=== PATIENT | female | born 1935 | race Caucasian/White ===

== ENCOUNTER 2016-07-25 11:18 | Emergency (ER) | payer MEDICARE, OTHER ==
[2016-07-25] MEDS ORDERED: NORMAL SALINE 1000 ML 1,000 ML IV ONE (11:35)
--- NOTE | 2016-07-25 11:36 | ER Document Report ---
ED Medical Screen (RME) - General Stated Complaint: NAUSEA Mode of Arrival: Wheelchair Information source: Patient Notes: Patient presents to the emergency department with weakness. Reports she's been nausea and diarrhea since . Unable to eat or drink due to nausea. Patient blood pressure 77/43 with a heart rate of 46, reports hx afib, stroke. DM2. I have greeted and performed a rapid initial assessment of this patient. A comprehensive ED assessment and evaluation of the patient, analysis of test results and completion of the medical decision making process will be conducted by additional ED providers. TRAVEL OUTSIDE OF THE [place] IN LAST 30 DAYS: No - Related Data Allergies/Adverse Reactions: Penicillins Allergy (Verified 07/25/16 11:31) HANDS RED AND SKIN PEELED Past Medical History - Past Medical History Cardiac Medical History: Reports: Hx Atrial Fibrillation, Hx Coronary Artery Disease, Hx Hypercholesterolemia, Hx Hypertension - LISINOPRIL, HCTZ Denies: Hx Heart Attack Pulmonary Medical History: Reports: Hx Bronchitis Denies: Hx Asthma, Hx COPD, Hx Pneumonia, Hx Tuberculosis Neurological Medical History: Denies: Hx Cerebrovascular Accident, Hx Seizures Endocrine Medical History: Reports: Hx Diabetes Mellitus Type 2 GI Medical History: Reports: Hx Hiatal Hernia - HAD SURGERY. Denies: Hx Ulcer Musculoskeltal Medical History: Denies Hx Arthritis Past Surgical History: Reports: Hx Abdominal Surgery, Hx Bowel Surgery, Hx Cardiac Catheterization, Hx Hysterectomy, Hx Tubal Ligation. Denies: Hx Mastectomy, Hx Open Heart Surgery - Immunizations Hx Diphtheria, Pertussis, Tetanus Vaccination: Yes Physical Exam - Vital signs Vitals: Temp Pulse Resp BP Pulse Ox 97.8 F 46 L 18 77/43 L 99 07/25/16 11:07/25/16 11:07/25/16 11:07/25/16 11:07/25/16 11:26 Course - Vital Signs Vital signs: Temp Pulse Resp BP Pulse Ox 97.8 F 46 L 18 77/43 L 99 07/25/16 11:07/25/16 11:26 07/25/16 11:07/25/16 11:07/25/16 11:26
[2016-07-25 12:57] LABS: ABSOLUTE LYMPHOCYTES (AUTO) 1.1 10^3/uL (0.5-4.7); ABSOLUTE MONOCYTES (AUTO) 0.4 10^3/uL (0.1-1.4); ABSOLUTE NEUT (AUTO) 2.8 10^3/uL (1.7-8.2); BASOPHILS % (AUTO) 1.1 % (0-2); EOSINOPHILS % (AUTO) 0.5 % (0-6); HEMATOCRIT 33.6 % (36.0-47.0); HEMOGLOBIN 11.2 g/dL (12.0-15.5); LYMPHOCYTES % (AUTO) 25.6 % (13-45); MEAN CORPUSCULAR HEMOGLOBIN 28.1 pg (27.0-33.4); MEAN CORPUSCULAR HGB CONC 33.4 g/dL (32.0-36.0); MEAN CORPUSCULAR VOLUME 84 fl (80-97); MONOCYTES % (AUTO) 9.4 % (3-13); RED BLOOD COUNT 3.99 10^6/uL (3.72-5.28); SEGMENTED NEUTROPHILS % (AUTO) 63.4 % (42-78); WHITE BLOOD COUNT 4.4 10^3/uL (4.0-10.5)
[2016-07-25] MEDS ORDERED: ONDANSETRON HCL INJ/PF 4 MG/2 ML SDV IV ONE (13:11)
[2016-07-25 13:15] LABS: BLOOD UREA NITROGEN 37 mg/dL (7-20); CALCIUM 9.1 mg/dL (8.4-10.2); CREATININE RESULT 1.25 mg/dL (0.52-1.25); GLUCOSE 182 mg/dL (75-110)
[2016-07-25 13:16] LABS: ALANINE AMINOTRANSFERASE 26 U/L (9-52); ALBUMIN 3.8 g/dL (3.5-5.0); ALKALINE PHOSPHATASE 100 U/L (38-126); ANION GAP 12 (5-19); ASPARTATE AMINO TRANSFERASE 30 U/L (14-36); BILIRUBIN,DIRECT 0.2 mg/dL (0.0-0.4); BILIRUBIN,TOTAL 0.7 mg/dL (0.2-1.3); CARBON DIOXIDE 25 mmol/L (22-30); CHLORIDE 97 mmol/L (98-107); LIPASE 106.6 U/L (23-300); MAGNESIUM 1.6 mg/dL (1.6-2.3); POTASSIUM 3.8 mmol/L (3.6-5.0); SODIUM 133.5 mmol/L (137-145); TOTAL PROTEIN 6.5 g/dL (6.3-8.2)
--- NOTE | 2016-07-25 13:21 | ER Document Report ---
ED General - General Chief Complaint: Nausea Stated Complaint: NAUSEA Mode of Arrival: Wheelchair TRAVEL OUTSIDE OF THE [place] IN LAST 30 DAYS: No - HPI Patient complains to provider of: nausea vomiting increased ostomy output lightheadedness Notes: Patient coming in for evaluation nausea vomiting increased ostomy output over the last 3 days. Ration also is complaining of some lightheadedness. Patient states symptoms worsen moving around. Patient states ostomy placed many years ago due to diverticular disease. Patient also has a history of fibrillation and is on sotalol. Patient states she did take her medications this morning. Otherwise patient denies any trauma denies any other critical etiology. Patient was found to be bradycardic and hypotensive upon her arrival here to the ER upon triaging placed the patient in room patient blood pressure did improve from systolic of 77 2 a systolic of 105. Patient's EKG was taken also shows a heart rate of 48 sinus bradycardia similar to previous EKGs. A quick review the patient's past medical history a showed a history of bradycardia in the past. - Related Data Allergies/Adverse Reactions: Penicillins Allergy (Verified 07/25/16 11:31) HANDS RED AND SKIN PEELED Past Medical History - General Information source: Patient - Social History Smoking Status: Never Smoker Chew tobacco use (# tins/day): No Family History: Reviewed & Not Pertinent Patient has suicidal ideation: No Patient has homicidal ideation: No - Past Medical History Cardiac Medical History: Reports: Hx Atrial Fibrillation, Hx Coronary Artery Disease, Hx Hypercholesterolemia, Hx Hypertension - LISINOPRIL, HCTZ Denies: Hx Heart Attack Pulmonary Medical History: Reports: Hx Bronchitis Denies: Hx Asthma, Hx COPD, Hx Pneumonia, Hx Tuberculosis Neurological Medical History: Denies: Hx Cerebrovascular Accident, Hx Seizures Endocrine Medical History: Reports: Hx Diabetes Mellitus Type 2 Renal/ Medical History: Denies: Hx Peritoneal Dialysis GI Medical History: Reports: Hx Hiatal Hernia - HAD SURGERY. Denies: Hx Ulcer Musculoskeltal Medical History: Denies Hx Arthritis Past Surgical History: Reports: Hx Abdominal Surgery, Hx Bowel Surgery, Hx Cardiac Catheterization, Hx Hysterectomy, Hx Tubal Ligation. Denies: Hx Mastectomy, Hx Open Heart Surgery - Immunizations Hx Diphtheria, Pertussis, Tetanus Vaccination: Yes Hx Pneumococcal Vaccination: 05/01/11 Review of Systems - Review of Systems Constitutional: No symptoms reported EENT: No symptoms reported Cardiovascular: No symptoms reported Respiratory: No symptoms reported Gastrointestinal: Nausea, Vomiting, Other - Ostomy output increased Genitourinary: No symptoms reported Female Genitourinary: No symptoms reported Musculoskeletal: No symptoms reported Skin: No symptoms reported Hematologic/Lymphatic: No symptoms reported Neurological/Psychological: No symptoms reported Physical Exam - Vital signs Vitals: Temp Pulse Resp BP Pulse Ox 97.8 F 46 L 18 77/43 L 99 07/25/16 11:07/25/16 11:07/25/16 11:07/25/16 11:07/25/16 11:26 Interpretation: Normal - General General appearance: Appears well, Alert - HEENT Head: Normocephalic, Atraumatic Eyes: Normal Pupils: PERRL - Respiratory Respiratory status: No respiratory distress Chest status: Nontender Breath sounds: Normal Chest palpation: Normal - Cardiovascular Rhythm: Bradycardia Heart sounds: Normal auscultation Murmur: No - Abdominal Inspection: Normal Distension: No distension Bowel sounds: Normal Tenderness: Nontender Organomegaly: No organomegaly - Back Back: Normal, Nontender - Extremities General upper extremity: Normal inspection, Nontender, Normal color, Normal ROM , Normal temperature General lower extremity: Normal inspection, Nontender, Normal color, Normal ROM , Normal temperature, Normal weight bearing. No: Carolee's sign - Neurological Neuro grossly intact: Yes Cognition: Normal Orientation: AAOx4 [place] Coma Scale Eye Opening: Spontaneous [place] Coma Scale Verbal: Oriented [place] Coma Scale Motor: Obeys Commands [place] Coma Scale Total: 15 Speech: Normal Motor strength normal: LUE, RUE, LLE, RLE Sensory: Normal - Psychological Associated symptoms: Normal affect, Normal mood - Skin Skin Temperature: Warm Skin Moisture: Dry Skin Color: Normal Course - Re-evaluation Re-evalutation: 07/25/16 13:21 Patient examination does shows bradycardia. Patient is able to move all 4 extremities. Ration's bradycardia more likely due to her sotalol she takes. Will starts fluid hydrating the patient with laboratory studies. 07/25/16 16:08 Agent feeling better after IV fluids. Did discuss with PCP will hold off on antibiotics for urinary results and stool results until cultures return. No signs of sepsis at this time. Patient agrees with plan to be discharged home encouraged patient to plan fluids. Patient will be given prescriptions a ran and Phenergan. Patient was grateful for her care. - Vital Signs Vital signs: Temp Pulse Resp BP Pulse Ox 97.8 F 47 L 14 146/64 H 99 07/25/16 11:26 07/25/16 14:55 07/25/16 14:01 07/25/16 14:55 07/25/16 11:26 - Laboratory Result Diagrams: 07/25/16 12:44 07/25/16 12:44 Laboratory results interpreted by me: 07/25/16 07/25/16 07/25/16 12:44 12:44 12:44 Hgb 11.2 L Hct 33.6 L PT 16.7 H Sodium 133.5 L Chloride 97 L BUN 37 H Est GFR ( Amer) 50 L Est GFR (Non-Af Amer) 41 L Glucose 182 H Urine Protein Urine Blood Ur Leukocyte Esterase 07/25/16 13:55 Hgb Hct PT Sodium Chloride BUN Est GFR ( Amer) Est GFR (Non-Af Amer) Glucose Urine Protein 30 H Urine Blood SMALL H Ur Leukocyte Esterase LARGE H Discharge - Discharge Clinical Impression: transient hypotension due to dehydration, Nausea vomiting and diarrhea Condition: Good Disposition: HOME, SELF-CARE Instructions: Gastroenteritis (adult) ([facility]), Dehydration ([facility]) Additional Instructions: Take medication as prescribed. Return to the ER symptoms worsen. Please follow -up with your physician in the next 2-3 days. Prescriptions: Ondansetron [Zofran Odt 4 mg Tablet] 1 - 2 tab PO Q4H PRN #20 tab.rapdis PRN Reason: For Nausea/Vomiting Promethazine HCl [Phenergan 25 mg Tablet] 1 - 2 tab PO Q6H PRN #15 tablet PRN Reason: Referrals: ZEV DAVIS MD [Primary Care Provider] - Follow up in 3-5 days
[2016-07-25 13:35] LABS: PROTHROMBIN TIME 16.7 SEC (11.4-15.4)
[2016-07-25 14:54] LABS: APPEARANCE,URINE SLIGHTLY-CLOUDY; BILIRUBIN,URINE NEGATIVE (NEGATIVE); GLUCOSE, URINE NEGATIVE (NEGATIVE); KETONES,URINE NEGATIVE (NEGATIVE); LEUKOCYTE ESTERASE,URINE LARGE (NEGATIVE); NITRITE,URINE NEGATIVE (NEGATIVE); PROTEIN,URINE 30 mg/dL (NEGATIVE); URINE SPECIFIC GRAVITY 1.012; UROBILINOGEN,URINE NEGATIVE mg/dL (<2.0)
[2016-07-25] MEDS ORDERED: NORMAL SALINE 1000 ML 500 ML IV ONE (15:37)
[2016-07-25 16:50] VITALS: BP 139/115
== END 2016-07-25 16:55 | disposition home or self-care (01) ==
LOC: ER 11:18
DX: E86.0 Dehydration (principal); I95.89 Other hypotension; R11.2 Nausea with vomiting, unspecified; R19.7 Diarrhea, unspecified; I48.91 Unspecified atrial fibrillation; I25.10 Atherosclerotic heart disease of native coronary artery without angina pectoris; E11.9 Type 2 diabetes mellitus without complications; I10 Essential (primary) hypertension; E78.00 Pure hypercholesterolemia, unspecified; Z90.710 Acquired absence of both cervix and uterus; Z88.0 Allergy status to penicillin; Z93.4 Other artificial openings of gastrointestinal tract status
CPT/HCPCS: 99283; 36415; 87040; 87045; 87205; 83690; 83735; 85025; 85610; 80053; 81001; 87493 ×2; 83605; J2405; J7030

== ENCOUNTER → 2016-11-30 | Outpatient (CLI) | payer MEDICARE, OTHER ==
[2016-11-30 09:22] LABS: ANION GAP 12 (5-19); BLOOD UREA NITROGEN 20 mg/dL (7-20); CALCIUM 9.4 mg/dL (8.4-10.2); CARBON DIOXIDE 27 mmol/L (22-30); CHLORIDE 101 mmol/L (98-107); CREATININE RESULT 0.97 mg/dL (0.52-1.25); GLUCOSE 149 mg/dL (75-110); POTASSIUM 3.7 mmol/L (3.6-5.0); SODIUM 139.8 mmol/L (137-145)
== END ==
LOC: OD 07:11
PROVIDERS: ATTEND Internal Medicine
DX: I10 Essential (primary) hypertension (principal); I25.10 Atherosclerotic heart disease of native coronary artery without angina pectoris; E11.9 Type 2 diabetes mellitus without complications
CPT/HCPCS: 36415; 80048

== ENCOUNTER → 2016-12-12 | Outpatient (CLI) | payer MEDICARE, OTHER ==
--- NOTE | 2016-12-12 08:09 | RADIOLOGY REPORT (SQ) ---
EXAM DESCRIPTION: CHEST PA/LATERAL COMPLETED DATE/TIME: 12/12/2016 7:48 am REASON FOR STUDY: SHORTNESS OF BREATH COMPARISON: CT chest 08/05/2013, 09/06/2012 Chest films 09/06/2012, 01/05/2016 EXAM PARAMETERS: NUMBER OF VIEWS: two views TECHNIQUE: Digital Frontal and Lateral radiographic views of the chest acquired. RADIATION DOSE: NA LIMITATIONS: none FINDINGS: LUNGS AND PLEURA: Lungs are hyperinflated but clear. No pleural effusion or pneumothorax. MEDIASTINUM AND HILAR STRUCTURES: Stable moderate size retrocardiac hiatal hernia HEART AND VASCULAR STRUCTURES: Stable mild cardiomegaly BONES: Osteoporotic, no acute findings HARDWARE: None in the chest. OTHER: No other significant finding. IMPRESSION: Obstructive lung disease, hiatal hernia, cardiomegaly. No acute changes TECHNICAL DOCUMENTATION: JOB ID: [id number] [employer]- All Rights Reserved
[2016-12-12 09:03] LABS: APPEARANCE,URINE SLIGHTLY-CLOUDY; BILIRUBIN,URINE NEGATIVE (NEGATIVE); GLUCOSE, URINE NEGATIVE (NEGATIVE); KETONES,URINE NEGATIVE (NEGATIVE); LEUKOCYTE ESTERASE,URINE LARGE (NEGATIVE); NITRITE,URINE NEGATIVE (NEGATIVE); PROTEIN,URINE 30 mg/dL (NEGATIVE); URINE SPECIFIC GRAVITY 1.016; UROBILINOGEN,URINE NEGATIVE mg/dL (<2.0)
[2016-12-12 09:34] LABS: ALANINE AMINOTRANSFERASE 31 U/L (9-52); ALBUMIN 3.8 g/dL (3.5-5.0); ALKALINE PHOSPHATASE 116 U/L (38-126); ANION GAP 12 (5-19); ASPARTATE AMINO TRANSFERASE 22 U/L (14-36); BILIRUBIN,DIRECT 0.4 mg/dL (0.0-0.4); BILIRUBIN,TOTAL 1.1 mg/dL (0.2-1.3); BLOOD UREA NITROGEN 20 mg/dL (7-20); CALCIUM 9.4 mg/dL (8.4-10.2); CARBON DIOXIDE 27 mmol/L (22-30); CHLORIDE 100 mmol/L (98-107); CREATININE RESULT 1.06 mg/dL (0.52-1.25); GLUCOSE 153 mg/dL (75-110); MAGNESIUM 1.5 mg/dL (1.6-2.3); POTASSIUM 3.8 mmol/L (3.6-5.0); SODIUM 138.9 mmol/L (137-145); TOTAL PROTEIN 6.7 g/dL (6.3-8.2)
== END ==
LOC: OD 07:18
PROVIDERS: ATTEND Internal Medicine
DX: N39.0 Urinary tract infection, site not specified (principal); R06.02 Shortness of breath; E11.9 Type 2 diabetes mellitus without complications; I10 Essential (primary) hypertension; E87.70 Fluid overload, unspecified
CPT/HCPCS: 36415; 71020; 80053; 81001; 83735; 87086

== ENCOUNTER → 2017-08-17 | Outpatient (CLI) | payer MEDICARE, OTHER ==
[2017-08-17 11:07] LABS: ANION GAP 10 (5-19); BLOOD UREA NITROGEN 24 mg/dL (7-20); CALCIUM 9.6 mg/dL (8.4-10.2); CARBON DIOXIDE 30 mmol/L (22-30); CHLORIDE 101 mmol/L (98-107); GLUCOSE 142 mg/dL (75-110); POTASSIUM 4.4 mmol/L (3.6-5.0); SODIUM 141.1 mmol/L (137-145)
== END ==
LOC: OD 09:34
PROVIDERS: ATTEND Internal Medicine
DX: E11.22 Type 2 diabetes mellitus with diabetic chronic kidney disease (principal); N18.9 Chronic kidney disease, unspecified
CPT/HCPCS: 36415; 80048; 83735

== ENCOUNTER → 2018-01-25 | Outpatient (CLI) | payer MEDICARE, OTHER ==
[2018-01-25 08:08] LABS: ABSOLUTE EOSINOPHILS # (AUTO) 0.1 10^3/uL (0.0-0.6); ABSOLUTE LYMPHOCYTES (AUTO) 1.3 10^3/uL (0.5-4.7); ABSOLUTE MONOCYTES (AUTO) 0.4 10^3/uL (0.1-1.4); ABSOLUTE NEUT (AUTO) 2.4 10^3/uL (1.7-8.2); BASOPHILS % (AUTO) 0.9 % (0-2); EOSINOPHILS % (AUTO) 1.5 % (0-6); HEMATOCRIT 33.1 % (36.0-47.0); HEMOGLOBIN 10.7 g/dL (12.0-15.5); LYMPHOCYTES % (AUTO) 31.2 % (13-45); MEAN CORPUSCULAR HEMOGLOBIN 26.2 pg (27.0-33.4); MEAN CORPUSCULAR HGB CONC 32.4 g/dL (32.0-36.0); MEAN CORPUSCULAR VOLUME 81 fl (80-97); MONOCYTES % (AUTO) 8.9 % (3-13); PLATELET COUNT 211 10^3/uL (150-450); RED CELL DISTRIBUTION WIDTH 14.9 % (11.5-14.0); SEGMENTED NEUTROPHILS % (AUTO) 57.5 % (42-78); TOTAL CELLS COUNTED % (AUTO) 100 %; WHITE BLOOD COUNT 4.1 10^3/uL (4.0-10.5)
[2018-01-25 08:32] LABS: ALANINE AMINOTRANSFERASE 35 U/L (9-52); ANION GAP 10 (5-19); BLOOD UREA NITROGEN 19 mg/dL (7-20); CALCIUM 9.4 mg/dL (8.4-10.2); CARBON DIOXIDE 29 mmol/L (22-30); CHLORIDE 101 mmol/L (98-107); CHOLESTEROL 136.46 mg/dL (0-200); GLUCOSE 163 mg/dL (75-110); SODIUM 140.4 mmol/L (137-145); TRIGLYCERIDES 134 mg/dL (<150)
[2018-01-25 08:46] LABS: DIRECT LDL 34 mg/dL (<100)
== END ==
LOC: OD 07:23
PROVIDERS: ATTEND Family Medicine Geriatric Medicine
DX: E11.9 Type 2 diabetes mellitus without complications (principal); I10 Essential (primary) hypertension; E78.5 Hyperlipidemia, unspecified; Z79.899 Other long term (current) drug therapy
CPT/HCPCS: 36415; 80048; 80061; 83036; 83735; 84443; 84460; 85025

== ENCOUNTER → 2018-03-05 | Outpatient (CLI) | payer MEDICARE, OTHER ==
[2018-03-05 11:07] LABS: ABSOLUTE LYMPHOCYTES (AUTO) 0.9 10^3/uL (0.5-4.7); ABSOLUTE MONOCYTES (AUTO) 0.3 10^3/uL (0.1-1.4); ABSOLUTE NEUT (AUTO) 2.8 10^3/uL (1.7-8.2); BASOPHILS % (AUTO) 0.8 % (0-2); HEMATOCRIT 32.9 % (36.0-47.0); HEMOGLOBIN 10.3 g/dL (12.0-15.5); LYMPHOCYTES % (AUTO) 22.2 % (13-45); MEAN CORPUSCULAR HEMOGLOBIN 24.4 pg (27.0-33.4); MEAN CORPUSCULAR HGB CONC 31.5 g/dL (32.0-36.0); MEAN CORPUSCULAR VOLUME 77 fl (80-97); PLATELET COUNT 206 10^3/uL (150-450); RED BLOOD COUNT 4.25 10^6/uL (3.72-5.28); TOTAL CELLS COUNTED % (AUTO) 100 %; WHITE BLOOD COUNT 4.2 10^3/uL (4.0-10.5)
[2018-03-05 11:30] LABS: ANION GAP 13 (5-19); BLOOD UREA NITROGEN 25 mg/dL (7-20); CALCIUM 9.6 mg/dL (8.4-10.2); CARBON DIOXIDE 27 mmol/L (22-30); CHLORIDE 102 mmol/L (98-107); GLUCOSE 142 mg/dL (75-110); POTASSIUM 3.8 mmol/L (3.6-5.0); SODIUM 141.9 mmol/L (137-145)
== END ==
LOC: OD 10:29
PROVIDERS: ATTEND Internal Medicine
DX: I12.9 Hypertensive chronic kidney disease with stage 1 through stage 4 chronic kidney disease, or unspecified chronic kidney disease (principal); E11.22 Type 2 diabetes mellitus with diabetic chronic kidney disease; N18.9 Chronic kidney disease, unspecified
CPT/HCPCS: 36415; 80048; 85025

== ENCOUNTER → 2018-03-07 | Outpatient (CLI) | payer MEDICARE, OTHER ==
[2018-03-07 10:27] LABS: ABSOLUTE RETICS # 0.068 10^6/uL (0.028-0.122); RETICULOCYTE COUNT (AUTO) 1.77 % (0.66-2.85)
[2018-03-07 10:46] LABS: IRON(TIBC) 20.9 ug/dL (37-170)
== END ==
LOC: OD 09:38
PROVIDERS: ATTEND Internal Medicine
DX: D64.9 Anemia, unspecified (principal); E53.8 Deficiency of other specified B group vitamins
CPT/HCPCS: 36415; 82607; 82728; 82746; 83540; 83550; 85045

== ENCOUNTER 2018-05-27 09:00 | Emergency (ER) | payer MEDICARE, OTHER ==
--- NOTE | 2018-05-27 11:17 | RADIOLOGY REPORT (SQ) ---
EXAM DESCRIPTION: KNEE LEFT 3 VIEWS COMPLETED DATE/TIME: 05/27/2018 11:05 am REASON FOR STUDY: fall pain 2 last night, twisted knee, pain COMPARISON: None. NUMBER OF VIEWS: Three views. TECHNIQUE: AP, lateral, and sunrise patella radiographic images acquired of the left knee. LIMITATIONS: None. FINDINGS: MINERALIZATION: Osteopenic BONES: No acute fracture or dislocation. No worrisome bone lesions, benign appearing nonossifying fi broma 2.5 cm in size along the lateral femoral condyle nonweightbearing surface. JOINT: No effusion. SOFT TISSUES: No soft tissue swelling. No radio-opaque foreign body. Diffuse popliteal artery calci fications OTHER: No other significant finding. IMPRESSION: No acute changes TECHNICAL DOCUMENTATION: JOB ID: [id number] [employer]- All Rights Reserved Reading location - IP/workstation name: [email or web address]
--- NOTE | 2018-05-27 11:18 | RADIOLOGY REPORT (SQ) ---
EXAM DESCRIPTION: HIP LEFT AP/LATERAL COMPLETED DATE/TIME: 05/27/2018 11:05 am REASON FOR STUDY: hip pain COMPARISON: None. NUMBER OF VIEWS: Two views. TECHNIQUE: AP pelvis and additional frog-leg view of the left hip. LIMITATIONS: None. FINDINGS: MINERALIZATION: Normal. LEFT HIP: No fracture or dislocation. No worrisome bone lesions. RIGHT HIP: No fracture or dislocation. No worrisome bone lesions. PUBIS AND ISCHIUM: No fracture. PELVIS: No fracture. SACRUM: Not well seen due to superimposed bowel gas LOWER LUMBAR SPINE: No fracture or dislocation. No worrisome bone lesions. No significant disc disea se. SOFT TISSUES: Left lower quadrant ostomy. Arterial vascular calcifications. OTHER: No other significant finding. IMPRESSION: No acute fracture or malalignment left hip TECHNICAL DOCUMENTATION: JOB ID: [id number] [employer]- All Rights Reserved Reading location - IP/workstation name: [email or web address]
[2018-05-27] MEDS ORDERED: LIDOCAINE 5% (700 MG) TRANSDERMAL ADH..PATCH TP ONE (12:11)
[2018-05-27] MEDS ORDERED: TRAMADOL HCL 50 MG TABLET PO ONE (12:11)
--- NOTE | 2018-05-27 12:17 | ER Document Report ---
ED General - General Chief Complaint: Fall Injury Stated Complaint: FALL/KNEE PAIN Time Seen by Provider: 05/27/18 09:42 Primary Care Provider: ZEV DAVIS MD [Primary Care Provider] - Follow up in 3-5 days TRAVEL OUTSIDE OF THE [place] IN LAST 30 DAYS: No - HPI Patient complains to provider of: Left knee pain Notes: Patient coming in for evaluation of left knee pain. Patient states that last night she was able around lost her balance and fell patient states pain to the medial side of the left knee ever since that time. Patient states she does have a walker at home however normally does not use it. Patient denies any loss consciousness. Patient otherwise resting comfortably denies fevers chills nausea vomiting diarrhea states difficulty ambulating because of pain in the left knee - Related Data Allergies/Adverse Reactions: Penicillins Allergy (Verified 05/27/18 09:01) HANDS RED AND SKIN PEELED Past Medical History - Social History Smoking Status: Never Smoker Chew tobacco use (# tins/day): No Frequency of alcohol use: None Drug Abuse: None Family History: Reviewed & Not Pertinent Patient has suicidal ideation: No Patient has homicidal ideation: No - Past Medical History Cardiac Medical History: Reports: Hx Atrial Fibrillation, Hx Coronary Artery Disease, Hx Hypercholesterolemia, Hx Hypertension - LISINOPRIL, HCTZ Denies: Hx Heart Attack Pulmonary Medical History: Reports: Hx Bronchitis Denies: Hx Asthma, Hx COPD, Hx Pneumonia, Hx Tuberculosis Neurological Medical History: Denies: Hx Cerebrovascular Accident, Hx Seizures Endocrine Medical History: Reports: Hx Diabetes Mellitus Type 2 Renal/ Medical History: Denies: Hx Peritoneal Dialysis GI Medical History: Reports: Hx Hiatal Hernia - HAD SURGERY. Denies: Hx Ulcer Musculoskeletal Medical History: Denies Hx Arthritis Past Surgical History: Reports: Hx Abdominal Surgery, Hx Bowel Surgery, Hx Cardiac Catheterization, Hx Hysterectomy, Hx Tubal Ligation. Denies: Hx Mastectomy, Hx Open Heart Surgery - Immunizations Hx Diphtheria, Pertussis, Tetanus Vaccination: Yes Hx Pneumococcal Vaccination: 05/01/11 Review of Systems - Review of Systems Constitutional: No symptoms reported EENT: No symptoms reported Cardiovascular: No symptoms reported Respiratory: No symptoms reported Gastrointestinal: No symptoms reported Genitourinary: No symptoms reported Female Genitourinary: No symptoms reported Musculoskeletal: Other - Left knee pain Skin: No symptoms reported Hematologic/Lymphatic: No symptoms reported Neurological/Psychological: No symptoms reported -: Yes All other systems reviewed and negative Physical Exam - Vital signs Vitals: Temp Pulse Resp BP Pulse Ox 97.5 F 92 16 145/82 H 97 05/27/18 09:06 05/27/18 09:06 05/27/18 09:06 05/27/18 09:06 05/27/18 09:06 Interpretation: Normal - General General appearance: Appears well, Alert - HEENT Head: Normocephalic, Atraumatic Eyes: Normal Pupils: PERRL - Respiratory Respiratory status: No respiratory distress Chest status: Nontender Breath sounds: Normal Chest palpation: Normal - Cardiovascular Rhythm: Regular Heart sounds: Normal auscultation Murmur: No - Abdominal Inspection: Normal Distension: No distension Bowel sounds: Normal Tenderness: Nontender Organomegaly: No organomegaly - Back Back: Normal, Nontender - Extremities General upper extremity: Normal inspection, Nontender, Normal color, Normal ROM, Normal temperature General lower extremity: Normal inspection, Tender - Right knee unaffected patient examination of the left knee shows small bruise in the medial patella plateau region patient does have pain on valgus stressing and anterior drawer testing there is no instability no deformity, Normal color, Normal ROM, Normal temperature, Normal weight bearing. No: Carolee's sign - Neurological Neuro grossly intact: Yes Cognition: Normal Orientation: AAOx4 [place] Coma Scale Eye Opening: Spontaneous [place] Coma Scale Verbal: Oriented [place] Coma Scale Motor: Obeys Commands [place] Coma Scale Total: 15 Speech: Normal Motor strength normal: LUE, RUE, LLE, RLE Sensory: Normal - Psychological Associated symptoms: Normal affect, Normal mood - Skin Skin Temperature: Warm Skin Moisture: Dry Skin Color: Normal Course - Re-evaluation Re-evalutation: 05/27/18 14:38 Knee x-rays and hip x-rays performed showing no signs of fracture recommend Nav bandage with treatment of her pain with Tylenol lidocaine patches and tramadol for severe pain. Patient was given warnings about narcotic side effects and increasing risk of fall patient does have a walker at home is to use this for the next few days return for repeat x-rays in 7 days if pain worsens or fails to improve patient states understanding discharged home. - Vital Signs Vital signs: Temp Pulse Resp BP Pulse Ox 97.7 F 60 18 139/59 H 95 05/27/18 13:32 05/27/18 13:32 05/27/18 13:32 05/27/18 13:32 05/27/18 13:32 Discharge - Discharge Clinical Impression: Left knee pain Qualifiers: Chronicity: acute Qualified Code(s): M25.562 - Pain in left knee Condition: Good Disposition: HOME, SELF-CARE Instructions: Oral Narcotic Medication ([facility]), Sprained Knee ([facility]) Additional Instructions: Your x-rays today show no signs of acute fracture. I would highly recommend she follow-up with your primary care physician in the next 5-7 days if you continue to have no improvement of your pain. We recommend using the Nav wrap as given to you here in ER to help support her knee please use your walker at home when ambulating for the next 5-7 days. I would recommend using [id number] lidocaine patches Tylenol for pain control for severe pain I will give you a prescription for tramadol. Please be aware that this is a narcotic and can increase your risk of falling. I would recommend only taking this when you are about to go to sleep. Return to ER if symptoms worsen Prescriptions: Tramadol HCl [Ultram 50 mg Tablet] 50 mg PO ASDIR PRN #14 tablet PRN Reason: Referrals: ZEV DAVIS MD [Primary Care Provider] - Follow up in 3-5 days
[2018-05-27 13:33] VITALS: BP 139/59
== END 2018-05-27 14:16 | disposition home or self-care (01) ==
LOC: ER 09:00
DX: M25.562 Pain in left knee (principal); I48.91 Unspecified atrial fibrillation; I25.10 Atherosclerotic heart disease of native coronary artery without angina pectoris; E78.00 Pure hypercholesterolemia, unspecified; I10 Essential (primary) hypertension; E11.9 Type 2 diabetes mellitus without complications; Z88.0 Allergy status to penicillin; Z90.710 Acquired absence of both cervix and uterus
CPT/HCPCS: 99283; 73502; 73562; L1830; A9270

== ENCOUNTER → 2018-06-13 | Day surgery (SDC) | payer MEDICARE, OTHER ==
--- NOTE | 2018-06-13 14:57 | RADIOLOGY REPORT (SQ) ---
EXAM DESCRIPTION: CT LEFT LOWER EXTREMITY WITH COMPLETED DATE/TIME: 06/13/2018 2:28 pm REASON FOR STUDY: CONTUSION OF LEFT KNEE, INITIAL ENCOUNTER S80.02XA CONTUSION OF LEFT KNEE, INITIA L ENCOUNTER COMPARISON: None. TECHNIQUE: Post arthrographic imaging performed through the left knee with reformatted coronal and s agittal imaging windowed for bone and soft tissues. All CT scanners at this facility use dose modulation, iterative reconstruction, and/or weight based d osing when appropriate to reduce radiation dose to as low as reasonably achievable (ALARA). [facility]: Dose Right [facility]: CareDose [facility]: Dose Right [facility]: Teradose 4D [facility]: DDStocks RADIATION DOSE: CT Rad equipment meets quality standard of care and radiation dose reduction techniq ues were employed. CTDIvol: 4.6 mGy. DLP: 109 mGy-cm. mGy. LIMITATIONS: None. FINDINGS: SOFT TISSUES: No regional soft tissue masses or radiopaque foreign body noted. Popliteal artery calcifications. BONES: Normal bone density for age. No fracture. A 1.3 cm subcortical cyst is present in the nonweightbearing surface lateral femoral condyles at the attachment of the popliteus tendon. This is best shown on coronal image 28 and axial image 41. Popl iteus tendon and tendon sheath grossly intact. JOINT DISTENTION: Adequate distention with contrast. No intra-articular loose bodies. CHONDRAL SURFACES: Minimal chondromalacia in the medial patellar facet. MENISCI: Medial and lateral menisci are intact OTHER: Anterior posterior cruciate ligaments intact. Mild thickening at the proximal attachment medi al collateral ligament. Lateral collateral ligament unremarkable IMPRESSION: No CT arthrogram evidence of meniscal tear or cruciate ligament injury TECHNICAL DOCUMENTATION: JOB ID: [id number] Quality ID # [id number]: Final reports with documentation of one or more dose reduction techniques (e.g., Au tomated exposure control, adjustment of the mA and/or kV according to patient size, use of iterative reconstruction technique) 2010 [employer]- All Rights Reserved Reading location - IP/workstation name: [email or web address]
--- NOTE | 2018-06-13 15:03 | RADIOLOGY REPORT (SQ) ---
EXAM DESCRIPTION: FLUORO/NEEDLE PLACEMENT COMPLETED DATE/TIME: 06/13/2018 2:27 pm REASON FOR STUDY: CONTUSION OF LEFT KNEE, INITIAL ENCOUNTER S80.02XA CONTUSION OF LEFT KNEE, INITIA L ENCOUNTER COMPARISON: None. FLUOROSCOPY TIME: 20 seconds 4 digital fluoroscopic images saved to PACS. LIMITATIONS: None. PROCEDURE: Procedure, risks, benefits and alternatives explained to patient who then gave written co nsent. The left knee was marked and a time-out was called for correct marking verification. Entry s ite marked using fluoroscopic guidance. Knee prepped and draped using sterile technique. Local anes thesia achieved using 3 mL of 1% lidocaine injection. 22 gauge spinal needle introduced into the kathie nt space under direct fluoroscopic visualization. Non-ionic contrast instilled to confirm intra-jennifer cular position. Additional dilute non-ionic contrast instilled. Needle removed and entry site cover ed with sterile bandage. No immediate complications noted. TECHNIQUE: Digital images acquired during fluoroscopy and stored on PACS. Patient immediately take n to the CT suite for additional imaging. INJECTION LOCATION: Left knee CONTRAST TYPE AND AMOUNT: 2 mL of Omnipaque 300 was injected into the left knee joint followed by 20 mL of dilute Omnipaque/ saline mixture for CT arthrogram IMPRESSION: SUCCESSFUL NEEDLE PLACEMENT AND INJECTION FOR LEFT KNEE CT ARTHROGRAM. COMMENT: Quality ID [id number]: Final reports for procedures using fluoroscopy that document radiation exp osure indices, or exposure time and number of fluorographic images (if radiation exposure indices are not available) TECHNICAL DOCUMENTATION: JOB ID: [id number] [email or web address]- All Rights Reserved Reading location - IP/workstation name: [email or web address]
== END ==
LOC: RAD 13:22
PROVIDERS: ATTEND Orthopaedic Surgery
DX: S80.02XA Contusion of left knee, initial encounter (principal); X58.XXXA Exposure to other specified factors, initial encounter
CPT/HCPCS: 27369; 77002

== ENCOUNTER → 2019-02-21 | Outpatient (CLI) | payer MEDICARE, OTHER ==
[2019-02-21 09:49] LABS: ABSOLUTE EOSINOPHILS # (AUTO) 0.1 10^3/uL (0.0-0.6); ABSOLUTE LYMPHOCYTES (AUTO) 1.4 10^3/uL (0.5-4.7); ABSOLUTE MONOCYTES (AUTO) 0.4 10^3/uL (0.1-1.4); BASOPHILS % (AUTO) 0.6 % (0-2); EOSINOPHILS % (AUTO) 1.8 % (0-6); HEMATOCRIT 38.9 % (36.0-47.0); HEMOGLOBIN 13.4 g/dL (12.0-15.5); LYMPHOCYTES % (AUTO) 28.2 % (13-45); MEAN CORPUSCULAR HEMOGLOBIN 32.7 pg (27.0-33.4); MEAN CORPUSCULAR HGB CONC 34.5 g/dL (32.0-36.0); MEAN CORPUSCULAR VOLUME 95 fl (80-97); MONOCYTES % (AUTO) 7.9 % (3-13); PLATELET COUNT 166 10^3/uL (150-450); RED CELL DISTRIBUTION WIDTH 11.7 % (11.5-14.0); SEGMENTED NEUTROPHILS % (AUTO) 61.5 % (42-78); TOTAL CELLS COUNTED % (AUTO) 100 %; WHITE BLOOD COUNT 4.8 10^3/uL (4.0-10.5)
[2019-02-21 10:25] LABS: ALKALINE PHOSPHATASE 177 U/L (38-126); ANION GAP 12 (5-19); ASPARTATE AMINO TRANSFERASE 25 U/L (14-36); BILIRUBIN,DIRECT 0.3 mg/dL (0.0-0.4); BILIRUBIN,TOTAL 1.5 mg/dL (0.2-1.3); BLOOD UREA NITROGEN 21 mg/dL (7-20); CALCIUM 9.2 mg/dL (8.4-10.2); CARBON DIOXIDE 29 mmol/L (22-30); CHLORIDE 101 mmol/L (98-107); CHOLESTEROL 147.96 mg/dL (0-200); GLUCOSE 162 mg/dL (75-110); POTASSIUM 3.5 mmol/L (3.6-5.0); TRIGLYCERIDES 143 mg/dL (<150)
[2019-02-21 10:36] LABS: DIRECT LDL 56 mg/dL (<100)
== END ==
LOC: OD 08:31
PROVIDERS: ATTEND Internal Medicine
DX: I12.9 Hypertensive chronic kidney disease with stage 1 through stage 4 chronic kidney disease, or unspecified chronic kidney disease (principal); N18.3 Chronic kidney disease, stage 3 (moderate); E11.22 Type 2 diabetes mellitus with diabetic chronic kidney disease; I25.10 Atherosclerotic heart disease of native coronary artery without angina pectoris; I48.0 Paroxysmal atrial fibrillation; E03.9 Hypothyroidism, unspecified
CPT/HCPCS: 36415; 80053; 80061; 83036; 84443; 85025

== ENCOUNTER 2019-04-16 07:44 | Emergency (ER) | payer MEDICARE, OTHER ==
[2019-04-16] MEDS ORDERED: ONDANSETRON HCL INJ/PF 4 MG/2 ML SDV IV ONE (10:39)
--- NOTE | 2019-04-16 10:39 | ER Document Report ---
ED GI/ - General Chief Complaint: Abdominal Pain Stated Complaint: BACK/FLANK PAIN Time Seen by Provider: 04/16/19 10:06 Primary Care Provider: ZEV DAVIS MD [Primary Care Provider] - Follow up as needed Notes: Ms. Mendieta is an 84-year-old female with past medical history of A. 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 Patient states this began 2 days ago. She states that the pain is there at all times however it does worsen with movements. She states that she has had decreasing output via colostomy over the weekend. Patient denies any fever or chills, cough or chest pain. She denies any shortness of breath. She states she is urinating frequently however she is on quite a bit of Lasix and denies any dysuria. She endorses nausea without any episodes of vomiting however no nausea at this point in time. Patient states that she has only changed her colostomy bag once and it was only a small amount this morning at 6 AM. No known ill contacts. TRAVEL OUTSIDE OF THE [place] IN LAST 30 DAYS: No - Related Data Allergies/Adverse Reactions: Penicillins Allergy (Verified 04/16/19 08:20) HANDS RED AND SKIN PEELED Past Medical History - Social History Smoking Status: Never Smoker Chew tobacco use (# tins/day): No Frequency of alcohol use: None Drug Abuse: None Family History: Reviewed & Not Pertinent Patient has suicidal ideation: No Patient has homicidal ideation: No - Past Medical History Cardiac Medical History: Reports: Hx Atrial Fibrillation, Hx Coronary Artery Disease, Hx Hypercholesterolemia, Hx Hypertension - LISINOPRIL, HCTZ Denies: Hx Heart Attack Pulmonary Medical History: Reports: Hx Bronchitis Denies: Hx Asthma, Hx COPD, Hx Pneumonia, Hx Tuberculosis Neurological Medical History: Denies: Hx Cerebrovascular Accident, Hx Seizures Endocrine Medical History: Reports: Hx Diabetes Mellitus Type 2 Renal/ Medical History: Denies: Hx Peritoneal Dialysis GI Medical History: Reports: Hx Hiatal Hernia - HAD SURGERY. Denies: Hx Ulcer Musculoskeletal Medical History: Denies Hx Arthritis Past Surgical History: Reports: Hx Abdominal Surgery, Hx Bowel Surgery, Hx Cardiac Catheterization, Hx Cardiac Surgery - pacemaker, Hx Hysterectomy, Hx Tubal Ligation. Denies: Hx Mastectomy, Hx Open Heart Surgery - Immunizations Hx Diphtheria, Pertussis, Tetanus Vaccination: Yes Hx Pneumococcal Vaccination: 05/01/11 Review of Systems - Review of Systems Constitutional: See HPI EENT: No symptoms reported Cardiovascular: No symptoms reported Respiratory: No symptoms reported Gastrointestinal: See HPI Genitourinary: No symptoms reported Female Genitourinary: No symptoms reported Musculoskeletal: No symptoms reported Skin: No symptoms reported Hematologic/Lymphatic: No symptoms reported Neurological/Psychological: No symptoms reported Physical Exam - Vital signs Vitals: Temp Pulse Resp BP Pulse Ox 97.4 F 72 18 138/89 H 100 04/16/19 07:49 04/16/19 07:49 04/16/19 07:49 04/16/19 07:49 04/16/19 07:49 Interpretation: Normal - General General appearance: Appears well, Alert - HEENT Head: Normocephalic, Atraumatic Eyes: Normal Pupils: PERRL - Respiratory Respiratory status: No respiratory distress Chest status: Nontender Breath sounds: Normal Chest palpation: Normal - Cardiovascular Rhythm: Regular Heart sounds: Normal auscultation Murmur: No - Abdominal Inspection: Normal Distension: No distension Bowel sounds: Normal Tenderness: Nontender Organomegaly: No organomegaly - Back Back: Normal, CVA tenderness - L CVA TTP. No: Deformity/step-off - Extremities General upper extremity: Normal inspection, Nontender, Normal color, Normal ROM, Normal temperature General lower extremity: Normal inspection, Nontender, Normal color, Normal ROM, Normal temperature, Normal weight bearing. No: Carolee's sign - Neurological Neuro grossly intact: Yes Cognition: Normal Orientation: AAOx4 Jaime Coma Scale Eye Opening: Spontaneous [place] Coma Scale Verbal: Oriented Jaime Coma Scale Motor: Obeys Commands [place] Coma Scale Total: 15 Speech: Normal Motor strength normal: LUE, RUE, LLE, RLE Sensory: Normal - Psychological Associated symptoms: Normal affect, Normal mood - Skin Skin Temperature: Warm Skin Moisture: Dry Skin Color: Normal Course - Re-evaluation Re-evalutation: Patient is generally well-appearing nontoxic. Initial vitals within normal limits. Differential diagnosis includes UTI, pyelonephritis, SBO (less likely), diverticulitis 04/16/19 13:38 BC does not show significant leukocytosis or left shift. CMP notable for increased BUN to creatinine ratio consistent with dehydration. However creatinine is stable at 1.11. Total bili slightly elevated at 1.7. UA shows large amount of blood with large leukocyte esterase however only 4 WBCs. There is only 2 squamous epithelial cells. Given the patient's CVA tenderness with indirect percussion, this is likely pyelonephritis. CT of the abdomen pelvis does show a large hiatal hernia which is stable in appearance. Also shows an ostomy site in the left lower quadrant with an associated containing omental fat and small bowel. There is no obstruction. There is an umbilical hernia containing small bowel without incarceration or mechanical obstruction and small amount of scattered colonic diverticuli. She will be ordered for ceftriaxone as well as p.o. Bactrim for her pyelonephritis. Patient will also be ordered for a small bolus of IV fluids of approximately 500 mL, given her history of CHF. 04/16/19 15:41 Patient completed her ceftriaxone and took the p.o. Bactrim without any difficulties. Will observe for 30 minutes given her history of allergy to penicillins. Patient will be discharged with p.o. Keflex and p.o. Bactrim. Patient instructed to use yogurt with probiotics in it to prevent diarrhea commonly associated with antibiotic use. Patient given return precautions and instructed to follow-up with her primary care doctor for reevaluation. - Vital Signs Vital signs: Temp Pulse Resp BP Pulse Ox 98.2 F 72 18 159/85 H 95 04/16/19 12:39 04/16/19 12:39 04/16/19 12:39 04/16/19 12:39 04/16/19 12:39 - Laboratory Result Diagrams: 04/16/19 11:12 04/16/19 11:12 Laboratory results interpreted by me: 04/16/19 04/16/19 10:58 11:12 Chloride 97 L BUN 23 H Est GFR ( Amer) 57 L Est GFR (MDRD) Non-Af 47 L Glucose 126 H Total Bilirubin 1.7 H Alkaline Phosphatase 181 H Total Protein 8.4 H Urine Blood LARGE H Ur Leukocyte Esterase LARGE H Urine Ascorbic Acid 40 H Discharge - Discharge Clinical Impression: Pyelonephritis, Left flank pain Condition: Good Disposition: HOME, SELF-CARE Instructions: Pyelonephritis ([facility]), Antibiotic Therapy ([facility]), Trimethoprim- Sulfa ([facility]), Cephalexin ([facility]) Additional Instructions: It is important that you finish the full course of antibiotics as prescribed. You have been treated here in emergency department with your first doses. You do not need to initiate them until tomorrow morning. You will take the Keflex (cephalexin) 3 times a day for the next 14 days. You also take the Bactrim (trimethoprim/sulfamethoxazole) for the next 14 days as well. It is important that you finish the full course of antibiotics. I would recommend that you eat yogurt with probiotics in it such as activity you to help prevent diarrhea co mmonly associated with antibiotic use. Follow-up with your primary care doctor. Make sure you stay well-hydrated. Return to the ED if you develop lightheadedness, fever, worsening pain, unable to keep down food or drink, or any other concerning symptoms. Prescriptions: Sulfamethoxazole/Trimethoprim [Bactrim Ds Tablet] 2 tab PO BID 14 Days #28 tablet Cephalexin Monohydrate [Keflex 500 mg Capsule] 500 mg PO TID 14 Days #42 capsule Referrals: ZEV DAVIS MD [Primary Care Provider] - Follow up as needed
[2019-04-16] MEDS ORDERED: MORPHINE SULFATE 10 MG/ML INJ IV ONE (10:40)
[2019-04-16 11:21] LABS: APPEARANCE,URINE SLIGHTLY-CLOUDY; BILIRUBIN,URINE NEGATIVE (NEGATIVE); COLOR,URINE YELLOW; GLUCOSE, URINE NEGATIVE (NEGATIVE); KETONES,URINE NEGATIVE (NEGATIVE); LEUKOCYTE ESTERASE,URINE LARGE (NEGATIVE); NITRITE,URINE NEGATIVE (NEGATIVE); PROTEIN,URINE NEGATIVE (NEGATIVE); UROBILINOGEN,URINE NEGATIVE mg/dL (<2.0)
[2019-04-16 11:35] LABS: ABSOLUTE LYMPHOCYTES (AUTO) 1.5 10^3/uL (0.5-4.7); ABSOLUTE MONOCYTES (AUTO) 0.4 10^3/uL (0.1-1.4); ABSOLUTE NEUT (AUTO) 4.3 10^3/uL (1.7-8.2); BASOPHILS % (AUTO) 0.7 % (0-2); EOSINOPHILS % (AUTO) 0.5 % (0-6); HEMATOCRIT 40.8 % (36.0-47.0); HEMOGLOBIN 14.1 g/dL (12.0-15.5); LYMPHOCYTES % (AUTO) 23.2 % (13-45); MEAN CORPUSCULAR HEMOGLOBIN 32.9 pg (27.0-33.4); MEAN CORPUSCULAR HGB CONC 34.5 g/dL (32.0-36.0); MEAN CORPUSCULAR VOLUME 95 fl (80-97); MONOCYTES % (AUTO) 6.7 % (3-13); PLATELET COUNT 182 10^3/uL (150-450); RED BLOOD COUNT 4.27 10^6/uL (3.72-5.28); RED CELL DISTRIBUTION WIDTH 11.9 % (11.5-14.0); SEGMENTED NEUTROPHILS % (AUTO) 68.9 % (42-78); TOTAL CELLS COUNTED % (AUTO) 100 %; WHITE BLOOD COUNT 6.2 10^3/uL (4.0-10.5)
[2019-04-16 11:43] LABS: INTERNATIONAL RATION (INR) 1.22; PROTHROMBIN TIME 15.4 SEC (11.4-15.4)
[2019-04-16 11:58] LABS: ALBUMIN 4.8 g/dL (3.5-5.0); ALKALINE PHOSPHATASE 181 U/L (38-126); ANION GAP 14 (5-19); ASPARTATE AMINO TRANSFERASE 28 U/L (14-36); BILIRUBIN,DIRECT 0.2 mg/dL (0.0-0.4); BILIRUBIN,TOTAL 1.7 mg/dL (0.2-1.3); BLOOD UREA NITROGEN 23 mg/dL (7-20); CARBON DIOXIDE 28 mmol/L (22-30); CHLORIDE 97 mmol/L (98-107); GLUCOSE 126 mg/dL (75-110); TOTAL PROTEIN 8.4 g/dL (6.3-8.2)
--- NOTE | 2019-04-16 13:18 | RADIOLOGY REPORT (SQ) ---
EXAM DESCRIPTION: CT ABD/PELVIS WITH IV ORAL COMPLETED DATE/TIME: 04/16/2019 1:02 pm REASON FOR STUDY: abd pain, hx of colostomy, dec output COMPARISON: CT chest dated 08/05/2013 TECHNIQUE: CT scan of the abdomen and pelvis performed with intravenous and oral contrast using familia lyric scanning technique with dynamic intravenous contrast injection. Images reviewed with lung, soft t issue, and bone windows. Reconstructed coronal and sagittal MPR images reviewed. Delayed images for e valuation of the urinary system also acquired. All images stored on PACS. All CT scanners at this facility use dose modulation, iterative reconstruction, and/or weight based d osing when appropriate to reduce radiation dose to as low as reasonably achievable (ALARA). [facility]: Dose Right [facility]: CareDose [facility]: Dose Right [facility]: Teradose 4D [facility]: MemberConnection CONTRAST TYPE AND DOSE: 73 mL Omnipaque 350 RENAL FUNCTION: BUN 23, creatinine 1.1 RADIATION DOSE: . LIMITATIONS: None. FINDINGS: LOWER CHEST: There is a large hiatal hernia. Minimal right basilar atelectasis. LIVER: Normal size. No masses. There is mild prominence of the central hepatic ducts. SPLEEN: Numerous splenic granulomas. PANCREAS: The pancreas is atrophic. GALLBLADDER: Prior cholecystectomy. ADRENAL GLANDS: No significant masses or asymmetry. RIGHT KIDNEY AND URETER: Large right renal cyst. Normal enhancement and excretion. LEFT KIDNEY AND URETER: Small left renal cysts. Normal enhancement and excretion. AORTA AND VESSELS: No aneurysm. No dissection. Renal arteries, SMA, celiac without stenosis. RETROPERITONEUM: No retroperitoneal adenopathy, hemorrhage or masses. BOWEL AND PERITONEAL CAVITY: Ostomy site in the left lower quadrant with a large hernia containing om ental fat and small bowel. No obstruction. Scattered diverticuli. No acute diverticulitis. APPENDIX: Surgically absent. PELVIS: No significant masses. Normal bladder. No free fluid. ABDOMINAL WALL: Large umbilical hernia containing small bowel. No obstruction. BONES: No significant or acute findings. OTHER: No other significant finding. IMPRESSION: 1. Large hiatal hernia stable in appearance. 2. Ostomy site in the left lower quadrant. There there is an associated hernia containing omental f at and small bowel. No obstruction. 3. Umbilical hernia containing small bowel. Again no evidence of incarceration or mechanical obstru ction. 4. Scattered colonic diverticuli. TECHNICAL DOCUMENTATION: JOB ID: [id number] Quality ID # [id number]: Final reports with documentation of one or more dose reduction techniques (e.g., Au tomated exposure control, adjustment of the mA and/or kV according to patient size, use of iterative reconstruction technique) 2010 [employer]- All Rights Reserved Reading location - IP/workstation name: [facility]-
[2019-04-16] MEDS ORDERED: CEFTRIAXONE 1 GM/D5W RTU 50 ML ONE (13:36)
[2019-04-16] MEDS ORDERED: SULFAMETHOXAZOLE/TRIMETHOPRIM 800-160 MG TABLET PO ONE (13:36)
[2019-04-16] MEDS ORDERED: NORMAL SALINE 500 ML IV ONE (13:41)
[2019-04-16] MEDS ORDERED: CEFTRIAXONE 1 GM/D5W RTU 1 GM/50 ML RTUPB IV ONE (15:00)
[2019-04-16 15:45] VITALS: BP 142/53
== END 2019-04-16 16:17 | disposition home or self-care (01) ==
LOC: ER 07:44
DX: N12 Tubulo-interstitial nephritis, not specified as acute or chronic (principal); R10.9 Unspecified abdominal pain; I48.91 Unspecified atrial fibrillation; I25.10 Atherosclerotic heart disease of native coronary artery without angina pectoris; E78.00 Pure hypercholesterolemia, unspecified; I10 Essential (primary) hypertension; E11.9 Type 2 diabetes mellitus without complications; Z95.0 Presence of cardiac pacemaker; Z90.710 Acquired absence of both cervix and uterus; Z88.0 Allergy status to penicillin; Z79.01 Long term (current) use of anticoagulants
CPT/HCPCS: 36415; 87040; 83690; 85025; 85610; 80053; 81001; 83605; 74177; J2270; J2405; A9270; J7040; J0696; 96361; 96365; 96375; 99284

== ENCOUNTER 2019-04-20 06:22 | Emergency (ER) | payer MEDICARE, OTHER ==
[2019-04-20] MEDS ORDERED: OXYCODONE-ACETAMINOPHEN 5-325 MG TABLET PO ONE (09:41)
--- NOTE | 2019-04-20 09:47 | ER Document Report ---
ED General - General Chief Complaint: Abdominal Pain Stated Complaint: RASH ON STOMACH Time Seen by Provider: 04/20/19 09:00 Primary Care Provider: ZEV DAVIS MD [Primary Care Provider] - Follow up as needed TRAVEL OUTSIDE OF THE [place] IN LAST 30 DAYS: No - HPI Notes: Ms. Mendieta is an 84-year-old female with a chief complaint of severe left flank pain and skin rash. Patient was seen here 4 days ago by another provider with flank pain and no rash at that time and she had unequivocal urinalysis and was sent out with a diagnosis of pyelonephritis and placed on oral antibiotics. She denies any urinary symptoms. She denies nausea, vomiting or fever. Rash developed yesterday. Patient has no prior history of shingles or varicella. No history of immunocompromise. - Related Data Allergies/Adverse Reactions: Penicillins Allergy (Verified 04/20/19 07:22) HANDS RED AND SKIN PEELED Home Medications: Patient has printed med list Past Medical History - Social History Smoking Status: Never Smoker Family History: Reviewed & Not Pertinent Patient has suicidal ideation: No Patient has homicidal ideation: No - Past Medical History Cardiac Medical History: Reports: Hx Atrial Fibrillation, Hx Coronary Artery Disease, Hx Hypercholesterolemia, Hx Hypertension - LISINOPRIL, HCTZ Denies: Hx Heart Attack Pulmonary Medical History: Reports: Hx Bronchitis Denies: Hx Asthma, Hx COPD, Hx Pneumonia, Hx Tuberculosis Neurological Medical History: Denies: Hx Cerebrovascular Accident, Hx Seizures Endocrine Medical History: Reports: Hx Diabetes Mellitus Type 2 Renal/ Medical History: Denies: Hx Peritoneal Dialysis GI Medical History: Reports: Hx Hiatal Hernia - HAD SURGERY. Denies: Hx Ulcer Musculoskeletal Medical History: Denies Hx Arthritis Past Surgical History: Reports: Hx Abdominal Surgery, Hx Bowel Surgery, Hx Cardiac Catheterization, Hx Cardiac Surgery - pacemaker, Hx Hysterectomy, Hx Tubal Ligation. Denies: Hx Mastectomy, Hx Open Heart Surgery - Immunizations Hx Diphtheria, Pertussis, Tetanus Vaccination: Yes Hx Pneumococcal Vaccination: 05/01/11 Review of Systems - Review of Systems Notes: Constitutional: Negative for fever. HENT: Negative for sore throat. Eyes: Negative for visual changes. Cardiovascular: Negative for chest pain. Respiratory: Negative for shortness of breath. Gastrointestinal: Negative for abdominal pain, vomiting or diarrhea. Genitourinary: Negative for dysuria. Musculoskeletal: As per HPI. Skin: As per HPI. Neurological: Negative for headaches, weakness or numbness. 10 point ROS negative except as marked above and in HPI. Physical Exam - Vital signs Vitals: Temp Pulse Resp BP Pulse Ox 98.9 F 86 16 146/92 H 98 04/20/19 06:29 04/20/19 06:29 04/20/19 06:29 04/20/19 06:29 04/20/19 06:29 - Notes Notes: GENERAL: Well-developed well-nourished appearing in moderate pain. SKIN: Vesicular rash on erythematous base left flank area T1-L3 distribution. HEAD: Normocephalic atraumatic. EYES: PERRLA. Conjunctivae and sclerae clear. EARS: CANALS AND TMS CLEAR. NOSE: CLEAR. MOUTH: Moist mucosa. Good dentition. No stridor or edema. No drooling. NECK: Supple. No masses or thyromegaly. No adenopathy. Carotids 2+ without bruits. No JVD. BACK: Symmetrical without tenderness. CHEST: Respirations unlabored. Breath sounds clear and symmetrical. HEART: Regular rhythm. No murmur gallop or rub. ABDOMEN: Colostomy present left lower quadrant. Soft nontender without masses, organomegaly or rebound. Bowel sounds normally active. No bruits. GENITALIA: Deferred. EXTREMITIES: No edema. No calf tenderness. Cap refill less than 1.5 seconds. Dorsalis pedis and posterior tibial pulses 3+ and symmetrical. NEUROLOGICAL: GCS 15. Alert and oriented x3. Normal gait. Fluent speech. Cranial nerves II through XII intact. Sensorimotor and cerebellar normal. Normal tone. Course - Re-evaluation Re-evalutation: 04/20/19 09:45 Patient clearly has herpes zoster at this time and I suspect her prior presentation with flank pain was not a pyelonephritis but rather preeruptive zoster. This is discussed in detail with patient and her and we are going to give her some Percocet here for pain and send her out with Percocet as needed for pain along with acyclovir and prednisone. - Vital Signs Vital signs: Temp Pulse Resp BP Pulse Ox 98.9 F 86 16 146/92 H 98 04/20/19 06:30 04/20/19 06:30 04/20/19 06:30 04/20/19 06:30 04/20/19 06:30 Discharge - Discharge Clinical Impression: Herpes zoster Qualifiers: Herpes zoster complications: without complications Qualified Code(s): B02.9 - Zoster without complications Condition: Stable Disposition: HOME, SELF-CARE Additional Instructions: Shingles You have shingles. Shingles is caused by the chicken pox virus, The virus has been surviving dormant in a nerve cell since you had chicken pox years ago. The virus has spread down a nerve root to reach the skin. Typically, an band-like area of pain and skin sensitivity develops, then small blisters erupt in the area. Shingles lasts two or three weeks, but sometimes leaves persistent pain. You are contagious -- you can give children chicken pox. But you can't give anyone shingles. Antiviral medicines (such as acyclovir or famciclovir) can help, but the rash usually worsens for about a week. Pain medication is often given if the area hurts. Antihistamines such as Benadryl may be necessary for itching if it does not respond to soda baths and calamine lotion. Sometimes cortisone medicine or nerve-block shots are necessary if pain is severe. If the area remains severely painful as the sores heal, or if you suspect an infection developing in the sores, see your doctor. Return here as needed for new or worsening symptoms. Follow-up with your prima care physician within the next 1 to 2 weeks. Prescriptions: Prednisone [Deltasone 20 mg Tablet] 2 tab PO DAILY 5 Days tablet Famciclovir [Famvir] 500 mg PO BID #20 tablet Famciclovir [Famvir] 500 mg PO TID 10 Days #30 tablet Oxycodone HCl/Acetaminophen [Percocet 5-325 mg Tablet] 1 - 2 tab PO Q4H PRN #25 tablet PRN Reason: Referrals: ZEV DAVIS MD [Primary Care Provider] - Follow up as needed
[2019-04-20 10:29] VITALS: BP 146/93
== END 2019-04-20 10:05 | disposition home or self-care (01) ==
LOC: ER 06:22
DX: B02.9 Zoster without complications (principal); R10.9 Unspecified abdominal pain; I48.91 Unspecified atrial fibrillation; Z88.0 Allergy status to penicillin; Z90.710 Acquired absence of both cervix and uterus; Z95.0 Presence of cardiac pacemaker
CPT/HCPCS: 99282; A9270